=== PATIENT | female | born 1975 | race Caucasian/White ===

== ENCOUNTER 2017-02-20 13:40 | Emergency (ER) | payer MEDICAID ==
[~2017-02-20] VITALS: Ht 167.6 cm; Wt 58.5 kg
[~2017-02-20 13:40] MED LIST: AUGMENTIN 875-1 EAC1 ORAL; DOXYCYCLINE HY100 M6 PO; NKM
[2017-02-20 13:43] VITALS: BP 119/81
[2017-02-20] MEDS ORDERED: Lidocaine 1% 10mg/ml/Epi 0.005mg/ml 30ml vial INJ ONE (14:00)
[2017-02-20] MEDS ORDERED: IBUPROFEN600 MG ORAL (14:52)
[2017-02-20] MEDS ORDERED: CLINDAMYCIN HC300 MG ORAL (14:52)
--- NOTE | 2017-02-20 15:52 | Emergency Room Report ---
History of Present Illness General Chief Complaint: Skin Rash/Abscess Source: Patient Present Illness HPI The patient is a 41-year-old female presenting for left groin abscess. She states that she noticed this for days prior and has been growing in size. Pain is an 8/10 dull ache and does not radiate. Worse with touch. She noticed a white discharged this morning from the area. She has been applying warm compresses. She denies any fever or chills. She denies any other symptoms including abdominal pain, dysuria, hematuria, nausea, vomiting Allergies: Coded Allergies: LATEX, NATURAL RUBBER (Verified Allergy, Unknown, 12/17/16) SULFA (SULFONAMIDE ANTIBIOTICS) (Verified Allergy, Unknown, 12/17/16) Patient History Past Medical History: see triage record Pertinent Family History: none Reviewed Nursing Documentation: PMH: Agreed, PSxH: Agreed Nursing Documentation-PMH Hx Cardiac Problems: No Hx Cancer: No Hx Gastrointestinal Problems: No Hx Neurological Problems: No Review of Systems All Other Systems: negative except mentioned in HPI Physical Exam Vital Signs Date Time Temp Pulse Resp B/P (MAP) Pulse Ox O2 Delivery O2 Flow Rate FiO2 02/20/17 13:43 97.9 87 20 119/81 99 Room Air Sp02 EP Interpretation: reviewed, normal General Appearance: no apparent distress, alert, GCS 15, non-toxic Head: normocephalic, atraumatic Eyes: bilateral eye normal inspection, bilateral eye PERRL ENT: hearing grossly normal, normal pharynx, no angioedema, normal voice Musculoskeletal: back normal, gait/station normal, normal range of motion, non- tender Neurologic: alert, oriented x3, responsive, motor strength/tone normal, sensory intact, speech normal Psychiatric: judgement/insight normal, memory normal, mood/affect normal, no suicidal/homicidal ideation Skin: other - 5cm in diameter fluctuant erythematous abscess to L inguinal region. Tender Lymphatic: no adenopathy Procedures Incision and Drainage Incision and Drainage : Consent: Verbal Site: L inguinal region Blade Size: 11 I & D Procedure: betadine prep, sterile drapes applied, sterile dressing applied Wound Location: lower extremity Wound's Depth, Shape: superficial Wound Length (cm): 2 Wound Explored: contaminated Irrigated w/ Saline (ccs): 100 Anesthesia: 1% Lidocaine, Lidocaine w/ Epi Volume Anesthetic (ccs): 2 Splint Applied?: No Sling Applied?: No Patient Tolerated: Well Complications: None Medical Decision Making PA Attestation Dr. Fernandez is my supervising physician. Patient management was discussed with my supervising physician Diagnostic Impression: Primary Impression: Abscess ER Course The patient is a 41-year-old female presenting for left groin abscess Differential diagnoses considered but not limited to: abscess, cellulitis, insect bite PE: NAD Vitals WNL. L inguinal abscess. Fluctuant. Tender. Central opening. Betadine prep was used to clean the skin and surrounding area. One percent lidocaine without epinephrine was used to anesthetize the are of planned incision. A #11 blade was used to make an incision in the central area of fluctuance approximately 1/3 the size of the diameter of the abcess. Once the incision was made, purulent material was expressed with blood. Blunt dissection was then used to release loculations and expressed more purulent material. Once only blood appeared to be expressed from the incision, normal saline was used to irrigate the inside of the abscess. The wound was then cleaned and sterile dressing applied. She is NH'ed home with prescription for clindamycin. ER precautions given Last Vital Signs Date Time Temp Pulse Resp B/P (MAP) Pulse Ox O2 Delivery O2 Flow Rate FiO2 02/20/17 14:55 97.9 89 20 119/81 99 Room Air Status: improved Disposition: HOME, SELF-CARE Condition: Improved Scripts Clindamycin Hcl (CLINDAMYCIN HCL) 300 Mg Capsule 300 MG ORAL Q8HR, #21 CAP Prov: AUDIE GUTIERREZ.A. 02/20/17 Ibuprofen* (MOTRIN*) 600 Mg Tablet 600 MG ORAL Q8H Y for For Pain, #30 TAB 0 Refills Prov: AUDIE GUTIERREZ P.A. 02/20/17 Referrals: NOT CHOSEN [facility]/MD,REFERRING (PCP) Patient Instructions: Abscess Additional Instructions: I discussed my findings with the patient. All questions and concerns have been answered. Treatment and medication compliance have been addressed. I advised the patient that they need to follow up with PMD in 3-5 days. Return to ED if symptoms worsen, new symptoms arise, or if needed for any reason. Patient verbalized understanding of discharge instructions. AUDIE GUTIERREZ Feb 20, 2017 15:52
== END 2017-02-20 15:00 | disposition home or self-care (01) ==
LOC: EMR 14:58
DX: L02.214 Cutaneous abscess of groin (principal); Z88.2 Allergy status to sulfonamides; Z91.040 Latex allergy status
CPT/HCPCS: 10060; 82962; 99284